=== PATIENT | female | born 1955 | race Caucasian/White ===

== ENCOUNTER 2018-01-19 13:29 | Emergency (ER) | payer OTHER ==
[2018-01-19] MEDS: ONDANSETRON 4 MG INJ IV (13:47)
[2018-01-19] MEDS: SOD CHLORIDE 0.9% 1,000 ML IV (13:48)
[2018-01-19] MEDS: morphine 4 MG/ML VIAL IV ×2 (13:48→15:05)
[2018-01-19 13:52] LABS: ADD MAN DIFF? NO
[2018-01-19 14:00] LABS: BASOPHILS % 0.3 % (0.0-2.0); EOSINOPHILS # 0.2 10^3/ul (0.0-0.5); EOSINOPHILS % 5.5 % (0.0-7.0); HEMATOCRIT 43.8 % (37.0-47.0); HEMOGLOBIN 14.5 g/dl (12.0-16.0); LYMPHOCYTES % 27.9 % (15.0-51.0); MEAN CORPUSCULAR HEMOGLOBIN 29.5 pg (29.0-33.0); MEAN CORPUSCULAR HGB CONC 33.1 g/dl (32.0-37.0); MEAN CORPUSCULAR VOLUME 89.2 fl (82.0-101.0); MEAN PLATELET VOLUME 10.6 fl (7.4-10.4); MONOCYTE # 0.5 10^3/ul (0.3-0.9); MONOCYTES % 14.1 % (0.0-11.0); NEUTROPHIL # 1.8 10^3/ul (1.6-7.5); NEUTROPHILS % 51.6 % (39.0-77.0); PLATELET COUNT 178 10^3/UL (140-415); RED BLOOD COUNT 4.91 10^6/ul (4.20-5.40); RED CELL DISTRIBUTION WIDTH 12.5 % (11.5-14.5)
[2018-01-19 14:00] LABS: WHITE BLOOD COUNT 3.5 10^3/ul (4.8-10.8)
[2018-01-19 14:22] LABS: ALANINE AMINOTRANSFERASE 25 IU/L (13-69); ALBUMIN 4.1 g/dl (3.3-4.9); ALBUMIN/GLOBULIN RATIO 1.28; ALKALINE PHOSPHATASE 121 IU/L (42-121); ANION GAP 16 (8-16); ASPARTATE AMINO TRANSFERASE 31 IU/L (15-46); BILIRUBIN,INDIRECT 0.4 mg/dl (0-1.1); BILIRUBIN,TOTAL 0.4 mg/dl (0.2-1.3); BLOOD UREA NITROGEN 20 mg/dl (7-20); CALCIUM 9.2 mg/dl (8.4-10.2); CARBON DIOXIDE 23 mmol/L (21-31); CHLORIDE 103 mmol/L (97-110); CREATININE 0.99 mg/dl (0.44-1.00); GLUCOSE 117 mg/dl (70-220); LIPASE 127 U/L (23-300); POTASSIUM 3.9 mmol/L (3.5-5.1); SODIUM 138 mmol/L (135-144); TOTAL PROTEIN 7.3 g/dl (6.1-8.1)
[2018-01-19 14:25] LABS: LACTIC ACID 1.7 mmol/L (0.5-2.0)
[2018-01-19] MEDS: LACTATED RINGER'S 1,000 ML IV (15:04)
== END 2018-01-19 17:34 | disposition home or self-care (01) ==
LOC: E/R 13:29
DX: R11.2 Nausea with vomiting, unspecified (principal); R10.84 Generalized abdominal pain; I10 Essential (primary) hypertension
CPT/HCPCS: 36415; 74176; 80053; 83605; 83690; 85025; 87040; 96374; 96375; 96376; 99285-25

== ENCOUNTER 2018-01-21 00:34 | Emergency (ER) | payer OTHER ==
[2018-01-21] MEDS: DEXAMETHASONE 4 MG TAB PO (02:14)
== END 2018-01-21 02:15 | disposition home or self-care (01) ==
LOC: E/R 00:34
DX: L50.9 Urticaria, unspecified (principal); R06.02 Shortness of breath; R22.0 Localized swelling, mass and lump, head; R22.1 Localized swelling, mass and lump, neck; I10 Essential (primary) hypertension
CPT/HCPCS: 99283; Z7502

== ENCOUNTER 2018-04-27 01:17 | Observation (INO) | payer MEDICARE, OTHER ==
[2018-04-27 01:48] LABS: ADD MAN DIFF? NO
[2018-04-27 01:50] LABS: BASOPHILS % 0.4 % (0.0-2.0); EOSINOPHILS # 0.1 10^3/ul (0.0-0.5); EOSINOPHILS % 0.5 % (0.0-7.0); HEMATOCRIT 38.7 % (37.0-47.0); HEMOGLOBIN 12.7 g/dl (12.0-16.0); LYMPHOCYTES # 3.4 10^3/ul (0.8-2.9); LYMPHOCYTES % 33.7 % (15.0-51.0); MEAN CORPUSCULAR HEMOGLOBIN 29.1 pg (29.0-33.0); MEAN CORPUSCULAR HGB CONC 32.8 g/dl (32.0-37.0); MEAN CORPUSCULAR VOLUME 88.8 fl (82.0-101.0); MEAN PLATELET VOLUME 10.2 fl (7.4-10.4); MONOCYTE # 0.8 10^3/ul (0.3-0.9); MONOCYTES % 7.6 % (0.0-11.0); NEUTROPHIL # 5.9 10^3/ul (1.6-7.5); NEUTROPHILS % 57.5 % (39.0-77.0); PLATELET COUNT 242 10^3/UL (140-415); RED BLOOD COUNT 4.36 10^6/ul (4.20-5.40); RED CELL DISTRIBUTION WIDTH 12.5 % (11.5-14.5)
[2018-04-27 01:50] LABS: WHITE BLOOD COUNT 10.2 10^3/ul (4.8-10.8)
[2018-04-27] MEDS: NITROGLYCERIN 2% 1 GM OINT PKT TD (02:11)
[2018-04-27 02:13] LABS: ANION GAP 13 (5-13); BLOOD UREA NITROGEN 21 mg/dl (7-20); CALCIUM 9.8 mg/dl (8.4-10.2); CARBON DIOXIDE 23 mmol/L (21-31); CHLORIDE 106 mmol/L (97-110); CREATININE 0.63 mg/dl (0.44-1.00); Estimated GFR > 60 mL/min (>60); GLUCOSE 107 mg/dl (70-220); POTASSIUM 3.9 mmol/L (3.5-5.1); SODIUM 142 mmol/L (135-144)
[2018-04-27 02:25] LABS: TROPONIN-I < 0.012 ng/ml (0.000-0.120)
[2018-04-27] MEDS ORDERED: ACETAMINOPHEN 325 MG TAB PO (04:00)
[2018-04-27] MEDS ORDERED: NITROGLYCERIN (SL) 0.4 MG TAB SL (04:00)
[2018-04-27] MEDS ORDERED: morphine 2 MG INJ IV (04:00)
[2018-04-27] MEDS ORDERED: BISACODYL (EC) 5 MG TAB PO (04:00)
[2018-04-27] MEDS ORDERED: DOCUSATE SODIUM 100 MG CAP PO (04:00)
[2018-04-27] MEDS ORDERED: ONDANSETRON 4 MG INJ IV (04:00)
[2018-04-27] MEDS ORDERED: LORAZEPAM 2 MG INJ IV (04:00)
[2018-04-27] MEDS ORDERED: NACL 0.9% 3 ML SYG IV (04:00)
[2018-04-27 04:54] LABS: CHOLESTEROL 205 mg/dl (100-200); HDL CHOLESTEROL 68 mg/dl (35-98); LDL CHOLESTEROL,CALCULATED 112 mg/dl; TRIGLYCERIDES 123 mg/dl (0-149)
[2018-04-27] MEDS ORDERED: traMADol 50 MG TAB PO (05:00)
[2018-04-27] MEDS ORDERED: LORAZEPAM 1 MG TAB PO (05:00)
[2018-04-27 05:36] LABS: HEMOGLOBIN A1C 5.6 % (0-5.9)
[2018-04-27] MEDS: SOD CHLORIDE 0.9% 1,000 ML IV (05:48)
[2018-04-27] MEDS: NITROGLYCERIN 0.2 MG/HR PATCH TRANSDERM (05:48)
[2018-04-27] MEDS: PANTOPRAZOLE (EC) 40 MG TAB PO (06:08)
[2018-04-27 08:30] LABS: CREATINE KINASE 30 IU/L (23-200)
[2018-04-27 08:33] LABS: CK INDEX 1.8; CK-MB 0.54 ng/ml (0.0-2.4); TROPONIN-I < 0.012 ng/ml (0.000-0.120)
[2018-04-27] MEDS: AMLODIPINE 10 MG TAB PO ×2 (09:00→09:55)
[2018-04-27] MEDS ORDERED: NON-FORMULARY/PATIENT OWN MED (Cetirizine Hcl* (Zyrtec*) 10 MG) PO (09:00)
[2018-04-27] MEDS ORDERED: NON-FORMULARY/PATIENT OWN MED (Losartan-Hydrochlorothiazide (Losartan-HCTZ) 1 TAB) PO (09:00)
[2018-04-27] MEDS: HYDROCHLOROTHIAZIDE 25 MG TAB PO (09:54)
[2018-04-27] MEDS: LOSARTAN 50 MG TAB PO (09:54)
[2018-04-27] MEDS: ASPIRIN (EC) 81 MG TAB PO (09:54)
[2018-04-27] MEDS: ATENOLOL 25 MG TAB PO (09:55)
[2018-04-27] MEDS: LORATADINE 10 MG TAB PO (09:55)
[2018-04-27 11:47] LABS: CREATINE KINASE 30 IU/L (23-200)
[2018-04-27 11:48] LABS: CK INDEX 1.5; CK-MB 0.44 ng/ml (0.0-2.4); TROPONIN-I < 0.012 ng/ml (0.000-0.120)
== END 2018-04-27 16:52 | disposition home or self-care (01) ==
LOC: E/R 01:17 → 6WM 03:49
DX: R07.9 Chest pain, unspecified (principal); I10 Essential (primary) hypertension; F41.9 Anxiety disorder, unspecified; E78.5 Hyperlipidemia, unspecified; J45.909 Unspecified asthma, uncomplicated; M19.90 Unspecified osteoarthritis, unspecified site; G89.29 Other chronic pain; M54.9 Dorsalgia, unspecified
CPT/HCPCS: 36415; 71045; 80048; 80061; 82550; 82553; 83036; 83735; 84443; 84484; 85025; 93005; 93306; 99285-25; G0378